=== PATIENT | male | born 1950 | race Caucasian/White ===

== ENCOUNTER 2016-06-29 06:57 | Observation (INO) | payer OTHER ==
[~2016-06-29 06:57] MED LIST: LIDOCAINE 1% 5 ML SDV ONE
[2016-06-29] MEDS ORDERED: ceFAZolin 2 GM/DEXTROSE 100 ML IV ONE (07:00)
[2016-06-29] MEDS ORDERED: DEXAMETHASONE 10 MG/ML VIAL IVP ONE (07:00)
[2016-06-29] MEDS ORDERED: LIDO/EPI 1% **Not for Epidural 20 ML MDV ONE (07:51)
[2016-06-29] MEDS ORDERED: MIDAZOLAM 2 MG/2 ML VIAL ONE (08:13)
[2016-06-29] MEDS ORDERED: PROPOFOL/EMULSION 500 MG/50 ML BOTTLE IV ONE ×2 (08:17→10:32)
[2016-06-29] MEDS ORDERED: fentaNYL 100 MCG/2 ML INJ ONE ×3 (08:17→13:49)
[2016-06-29] MEDS ORDERED: REMIFENTANIL HCL 1 MG VIAL ONE ×2 (08:17→10:32)
[2016-06-29] MEDS ORDERED: DEXAMETHASONE 4 MG/ML VIAL ONE (08:19)
[2016-06-29] MEDS ORDERED: ONDANSETRON 4 MG/2 ML VIAL ONE (08:19)
[2016-06-29] MEDS ORDERED: ROCURONIUM 50 MG/5 ML VIAL ONE (08:20)
[2016-06-29] MEDS ORDERED: LIDOCAINE 2% 5 ML SDV ONE (08:20)
[2016-06-29] MEDS ORDERED: PROPOFOL 200 MG/20 ML VIAL ONE (08:21)
[2016-06-29] MEDS ORDERED: PHENYLEPHRINE HCL 100 MCG/ML SYR ONE (08:27)
[2016-06-29] MEDS ORDERED: D5W 1/2 NS W/ 20 KCl/L 1,000 ML IV SCH (11:45)
[2016-06-29] MEDS ORDERED: OXYCODONE/APAP 5/325 TAB ONE (13:21)
--- NOTE | 2016-06-29 15:08 | GOP ---
[f rep st] OPERATIVE REPORT DATE OF OPERATION: 06/29/2016 SURGEON: Santino Freitas MD PERSONNEL ADMINISTRATOR: Mauri Carver. ANESTHESIA: General. PREOPERATIVE DIAGNOSIS: Left parotid gland tumor. POSTOPERATIVE DIAGNOSIS: Left parotid gland tumor. PROCEDURE PERFORMED: 1. Left superficial parotidectomy with facial nerve dissection. 2. Facial nerve monitoring x2 hours. 3. Limited neck dissection. FINDINGS: The patient had an approximately 1.5 x 1 x 1 cm tumor directly adjacent to the lower bran ch of the facial nerve. There were several slightly enlarged lymph nodes deep to this in upper leve l 2b of the neck, and these were removed as well. SPECIMENS: 1. Left parotid gland tissue. 2. Left neck level 2b lymph nodes. ESTIMATED BLOOD LOSS: 50 mL. INDICATIONS: The patient is a 65-year-old man with a left tail of parotid tumor. DESCRIPTION OF PROCEDURE: Patient was taken to the OR, positively identified, placed on monitors, g eneral anesthesia was induced. The patient had the facial nerve monitor set up. It was calibrated and used throughout the procedure. The face was prepped and draped in normal sterile fashion. I ma rked out an incision line for a modified Jayro incision. It was then injected with 5 cc of 1% lidoc matias with 1:100,000 epinephrine. The skin was sharply incised. Dr. Carver was assisting me through out the entire procedure, and his assistance and expertise were necessary for the safe completion of the operation. A skin flap was then raised and secured. Dissection was then carried down to the a nterior border of the sternocleidomastoid muscle, and dissection was carried superiorly, up anterior to the tragus. The incision was then deepened in a broad fashion down to the posterior belly of th e digastric muscle. The dissection was then carried superiorly and I was able to identify the main branch of the facial nerve. Dissection was then carried out to the pes of the facial nerve and then down along the inferior branch of the facial nerve. Individual branches of the nerve were dissecte d out intermittently using the facial nerve stimulating probe as needed, tying off vessels as needed when they were larger. The superficial lobe was then removed along with the underlying tumor which was contained within the inferior lobe. Several lymph nodes were deep to this and found to be slig htly enlarged. I elected to dissect out these lymph nodes due to the potential of a malignant neopl asm was present. Once this was done, the wound was irrigated with sterile saline. Hemostasis was a chieved. A drain was placed through a separate stab incision. The wound was closed in a layered fa shion with Vicryl, Prolene and fast-absorbing gut. A pressure dressing was placed and the case was terminated. At the end of the operation, I stimulated the facial nerve and all branches moved brisk ly. The patient was extubated and taken to the postop care unit in good condition, having tolerated the procedure well. COMPLICATIONS: None. /[id number]/MODL
[2016-06-29] MEDS: D5W 1/2 NS W/ 20 KCl/L 1,000 ML IV SCH (15:54)
[2016-06-29] MEDS: OXYCODONE/APAP 5/325 TAB PO PRN (16:53)
[2016-06-30] MEDS ORDERED: FLU VACC TS 2016-17(65YR+)/PF 0.5 ML SYR (FLUZONE HIGH DOSE) IM ONE (03:11)
[2016-06-30] MEDS: D5W 1/2 NS W/ 20 KCl/L 1,000 ML IV SCH (04:52)
[2016-06-30 07:41] VITALS: BP 117/58; PULSE 52; RESP 18; TEMP 97.9; O2SAT 95
--- NOTE | 2016-06-30 08:32 | SOAPPROG ---
SOAP Progress Note Assessment/Plan: pt s/p parotidectomy yesterday. doing very well. neck- dressing removed, drain was out, very small hematoma. Dressing placed. Facial nerve intact Plan:Pt s/p parotidectomy. He can remove dressing tomorrow. Discussed post op care. apply ointment to incision. F/u next week for suture removal, sooner if swelling increases. 06/30/16 08:29 Objective: Vital Signs Temp Pulse Resp BP Pulse Ox 36.6 C 52 L 18 117/58 L 95 06/30/16 07:40 06/30/16 07:40 06/30/16 07:40 06/30/16 07:40 06/30/16 07:40 06/29/16 06/30/16 07/01/16 05:59 05:59 05:59 Intake Total 3380 Output Total 65 Balance 3315 - Pending Discharge Pending Discharge Within 24 Hours: Yes Pending Discharge Date: 07/01/16 Pending Discharge Time: 11:00 ICD10 Worksheet Patient Problems: Problems Problem Status Onset Parotid adenoma Acute - ICD10 Problem Qualifiers (1) Parotid adenoma
[2016-06-30] MEDS: OXYCODONE/APAP 5/325 TAB PO PRN (09:48)
== END 2016-06-30 09:55 | disposition home or self-care (01) ==
LOC: F3E 06:57
PROVIDERS: ADMIT Otolaryngology; ATTEND Otolaryngology
PROC: 0CB90ZZ Excision of Left Parotid Gland, Open Approach (ICD-10-PCS; principal; 2016-06-29 08:15)
DX: D11.0 Benign neoplasm of parotid gland (principal); E78.5 Hyperlipidemia, unspecified; F32.9 Major depressive disorder, single episode, unspecified; Z23 Encounter for immunization
CPT/HCPCS: 42415; 90662; G0008; J0690; J2250; J2370; J2405; J2704; J3010; J1100

== ENCOUNTER 2016-12-13 11:09 | Inpatient (IN) | payer OTHER ==
[2016-12-13] MEDS ORDERED: LIDOCAINE 1% 300 MG/30 ML SDV ONE (11:25)
[2016-12-13] MEDS ORDERED: MIDAZOLAM 2 MG/2 ML VIAL ONE ×3 (11:26→11:55)
[2016-12-13] MEDS ORDERED: fentaNYL 100 MCG/2 ML INJ ONE ×2 (11:26→11:55)
[2016-12-13] MEDS ORDERED: IOPAMIDOL (ISOVUE-370) 150 ML BTL IV ONE (11:26)
[2016-12-13] MEDS ORDERED: ASPIRIN 81 MG CHEWABLE TAB ONE (11:26)
[2016-12-13] MEDS ORDERED: ASPIRIN 81 MG CHEWABLE TAB PO ONE (11:28)
--- NOTE | 2016-12-13 11:28 | EDPHY ---
H & P Time Seen by Provider: 12/13/16 11:20 HPI/ROS: CHIEF COMPLAINT: Chest pain HISTORY OF PRESENT ILLNESS: Patient was on a bike ride today with his when he started developing chest pain around 9:30 a.m. while riding. It radiated to both arms but was not associated with shortness of breath or vomiting or diaphoresis. His states he did have nausea. He presents with his with continued symptoms which are better but not completely gone. Symptoms were moderate and now are mild. Not better worse with anything. REVIEW OF SYSTEMS: Eye: no change in vision ENT: no sore throat Cardiac: HPI Pulmonary: no cough or SOB Abdomen: no vomiting, diarrhea, abdominal pain Musculoskeletal: no back pain Skin: no rash Neuro: no headache Constitutional: no fever : no urinary symptoms A comprehensive 10 point review of systems is otherwise negative aside from elements mentioned in the history of present illness. PAST MEDICAL HISTORY: Hypercholesterolemia Social history: , nonsmoker General Appearance: Alert and conversant, cooperative. Eyes: No scleral icterus. ENT, Mouth: Normal mucous membranes. Respiratory: Normal respiratory effort, breath sounds equal, lungs are clear to auscultation. Cardiovascular: Regular rate and rhythm. Gastrointestinal: Abdomen is soft and non tender. Neurological: Alert and oriented x3. Normally conversant. Face symmetric, normal movement and sensation in all extremities. Skin: Warm and dry, no rashes. Musculoskeletal: No peripheral edema and no joint swelling. Psychiatric: Not agitated. Emergency Department course/MDM: EKG performed, reviewed by myself, made a cardiac alert immediately. Ayoub at bedside at 1125; oral aspirin, cardiac cath rn. Placed on a cardiac nurse specialist. Further therapeutics deferred to cardiac cardiac cath rn. ICU admission. 1136: off to cardiac cath rn, total critical care time 20 minutes. Smoking Status: Never smoked Constitutional: Initial Vital Signs Temperature (C) 36.4 C 12/13/16 11:16 Heart Rate 54 L 12/13/16 11:16 Respiratory Rate 18 12/13/16 11:16 Blood Pressure 158/75 H 12/13/16 11:16 O2 Sat (%) 97 12/13/16 11:16 O2 Delivery Mode Room Air Allergies/Adverse Reactions: No Known Allergies Allergy (Verified 12/13/16 11:15) Home Medications: Medication Instructions Recorded Atorvastatin Calcium [Lipitor 40 40 mg PO DAILY 12/13/16 mg (*)] Escitalopram Oxalate [Lexapro] 10 mg PO DAILY 12/13/16 Medical Decision Making - Diagnostics EKG Interpretation: 12-lead EKG interpreted by me; official reading is in trace master. My interpretation is sinus rhythm, ST elevation consistent with acute anterior myocardial infarction. Differential Diagnosis: Differential diagnosis considered for chest pain including but not limited to myocardial ischemia, aortic dissection, pericarditis, pulmonary embolus, chest wall pain, pleural inflammation and pulmonary infectious causes. - Data Points Medications Given: Discontinued Medications Aspirin (Aspirin) 324 mg PO EDNOW ONE Stop: 12/13/16 11:29 Last Admin: 12/13/16 11:39 Dose: 324 mg Departure - Departure Disposition: To OP Cath/Surgery Clinical Impression: Acute myocardial infarction Condition: Serious
--- NOTE | 2016-12-13 11:30 | CPEKG ---
Heart Rate: 51 RR Interval: 1176 P-R Interval: 172 QRSD Interval: 82 QT Interval: 460 QTC Interval: 424 P [place]: 12 QRS [place]: 30 T Wave [place]: 25 EKG Severity - ABNORMAL ECG - EKG Impression: SINUS RHYTHM EKG Impression: LATERAL INJURY, PROBABLE EARLY ACUTE INFARCT EKG Impression: ST ELEVATION, CONSIDER ANTERIOR INJURY Electronically Signed By: Lex Cruz 13-Dec-2016 11:30:47
[2016-12-13 11:37] LABS: % IMMATURE GRANULYOCYTES 0.4 % (0.0-1.1); ABSOLUTE IMMATURE GRANULOCYTES 0.05 10^3/uL (0.00-0.10); ADD DIFF? NO; ADD MORPH? NO; ADD SCAN? NO; ATYPICAL LYMPHOCYTE FLAG 0 (0-99); FRAGMENT RBC FLAG 0 (0-99); HEMATOCRIT 48.1 % (40.0-51.0); HEMOGLOBIN 16.7 g/dL (13.7-17.5); LEFT SHIFT FLG 0 (0-99); LIPEMIA HEMOLYSIS FLAG 90 (0-99); MEAN CELL HEMOGLOBIN 33.8 pg (27.9-34.1); MEAN CELL HEMOGLOBIN CONCENTR. 34.7 g/dL (32.4-36.7); MEAN CELL VOLUME 97.4 fL (81.5-99.8); PLATELET CLUMPS FLAG 0 (0-99); PLATELET COUNT 220 10^3/uL (150-400); RED BLOOD CELL COUNT 4.94 10^6/uL (4.40-6.38); RED CELL DISTRIBUTION WIDTH 12.3 % (11.5-15.2)
[2016-12-13] MEDS ORDERED: BIVALIRUDIN 250 MG/5 ML VIAL IV ONE (11:45)
[2016-12-13] MEDS ORDERED: NITROGLYCERIN 1,500 MCG/15 ML VIAL MISC ONE (11:45)
[2016-12-13 11:48] LABS: ANION GAP 15 mEq/L (8-16); CALCIUM 10.2 mg/dL (8.5-10.4); CARBON DIOXIDE 22 mEq/l (22-31); CHLORIDE 107 mEq/L (97-110); CREATININE 1.1 mg/dL (0.7-1.3); GLOMERULAR FILTRATION RATE > 60; GLUCOSE 101 mg/dL (70-100); POTASSIUM 4.5 mEq/L (3.5-5.2); SODIUM 144 mEq/L (134-144)
[2016-12-13] MEDS ORDERED: EPTIFIBATIDE 200 MG/100 ML BOTTLE IV ONE (11:55)
[2016-12-13] MEDS ORDERED: EPTIFIBATIDE 20 MG/10 ML VIAL IVP ONE (11:56)
[2016-12-13 12:01] LABS: TROPONIN I 0.082 ng/mL (0-0.034)
[2016-12-13] MEDS ORDERED: IOPAMIDOL (ISOVUE-300) 150 ML BTL ONE (12:07)
[2016-12-13] MEDS ORDERED: ATROPINE SULFATE 1 MG/10 ML SYR ONE (12:08)
[2016-12-13] MEDS ORDERED: ADENOSINE 6 MG/2 ML VIAL ONE ×2 (12:12→12:13)
[2016-12-13] MEDS ORDERED: PRASUGREL HCL 10 MG TAB ONE (12:56)
[2016-12-13] MEDS ORDERED: TICAGRELOR 90 MG TAB ONE (13:00)
[2016-12-13] MEDS ORDERED: ATROPINE SULFATE 1 MG/10 ML SYR IVP PRN (13:15)
[2016-12-13] MEDS ORDERED: TICAGRELOR 90 MG TAB PO ONE (13:15)
[2016-12-13] MEDS ORDERED: ONDANSETRON 4 MG/2 ML VIAL IVP PRN (13:15)
[2016-12-13] MEDS ORDERED: ASPIRIN EC 325 MG TAB PO ONE (13:15)
[2016-12-13] MEDS ORDERED: NITROGLYCERIN 0.4 MG BTL SL PRN (13:15)
[2016-12-13] MEDS ORDERED: TEMAZEPAM 15 MG CAP PO PRN (13:15)
--- NOTE | 2016-12-13 14:03 | CPEKG ---
Heart Rate: 46 RR Interval: 1304 P-R Interval: 172 QRSD Interval: 86 QT Interval: 464 QTC Interval: 406 P [place]: 11 QRS [place]: 32 T Wave [place]: 55 EKG Severity - ABNORMAL ECG - EKG Impression: SINUS BRADYCARDIA EKG Impression: ST ELEVATION, PROBABLE LATERAL INJURY EKG Impression: ST ELEVATION, CONSIDER ANTERIOR INJURY Electronically Signed By: Barry Ayoub 14-Dec-2016 17:38:21
--- NOTE | 2016-12-13 17:42 | GHP ---
[f rep st] HISTORY AND PHYSICAL DATE OF ADMISSION: 12/13/2016 CHIEF COMPLAINT: We have been asked by Dr. Miguel to evaluate Mr. Lewis as a cardiac alert. HISTORY OF PRESENT ILLNESS: Mr. Lewis is a 66-year-old gentleman with known coronary artery disease based on coronary artery calcium scoring who presents with a chief complaint of chest pain. The darwin schneider was in his usual state of health until approximately 9:30 this a.m. While riding his bicycle, he began to experience chest pain. The chest pain is described as a pressure in the center of his chest extending into his arms. The chest pain was associated with nausea but not vomiting or diapho resis. When the chest discomfort did not improve, he presented to the emergency department for furt her evaluation. In the emergency department, he had an EKG performed demonstrating anterior ST and T-wave elevation consistent with an acute anterior myocardial infarction. He was treated with aspir in and nitroglycerin, and we were consulted to help in the further management of this patient. The patient was originally diagnosed with coronary artery disease in February of 2016 by coronary artery calcium scoring. Workup at that time including stress testing and echocardiogram was unremarkable. The patient did well until recently when he began to experience exertional chest pain consistent wi th angina. He denies a history of palpitations, orthopnea and PND. Risk factors include age and hy perlipidemia. PAST MEDICAL HISTORY: 1. Coronary artery disease by coronary artery calcium scoring. 2. Hyperlipidemia. 3. Depression. MEDICATIONS: Please see medicine reconciliation form. ALLERGIES: No known drug allergies. SOCIAL HISTORY: Patient is a retired high school band teacher. He does not smoke and denies problems with alcohol. FAMILY HISTORY: Noncontributory. REVIEW OF SYSTEMS: A 10-point review of systems is negative except as noted in the HPI. PHYSICAL EXAM: Abbreviated physical examination secondary to acute nature of illness. GENERAL: Darwin schneider is resting in bed. He is continuing to have symptoms of chest discomfort at this time. VITAL S: Blood pressure is 158/75, heart rate is 54, SaO2 is 97% on room air. HEENT: Normocephalic, atr aumatic. Extraocular muscles intact. NECK: No JVD. No bruits. LUNGS: Clear to auscultation ebenezer aterally. CARDIOVASCULAR: Regular rate and rhythm. S1, S2. Positive S4. ABDOMEN: Soft, nontend er. Normoactive bowel sounds. No hepatosplenomegaly. No abdominal aortic aneurysm palpated. EXTR EMITIES: No clubbing, cyanosis, or edema. NEURO: Patient is awake, alert, and oriented x3. LABORATORY: White blood cell count 14.19, hemoglobin 16.7, hematocrit 48, platelet count 220. Sodi um 144, potassium 4.5, chloride 107, CO2 of 22, BUN 21, creatinine 1.1. Troponin 0.082. ASSESSMENT AND PLAN: Mr. Lewis is a 66-year-old gentleman with known coronary artery disease who pr esents with an acute anterior ST-segment elevation myocardial infarction. Reviewed risks, benefits of cardiac catheterization with the patient and his . Will arrange to have this performed emerg palomo. /[id number]/MODL
--- NOTE | 2016-12-13 19:32 | CPIP ---
[f rep st] INVASIVE CARDIAC PROCEDURE DATE OF PROCEDURE: 12/13/2016 PROCEDURE: 1. Coronary angiography. 2. Left ventriculography. 3. Thrombectomy of left anterior descending coronary artery. 4. Stenting of left anterior descending coronary artery with Synergy drug-eluting stent. INDICATION: Acute anterior TV-vwzfujv-cydfttitz myocardial infarction. ACCESS: Patient was prepped and draped in a sterile fashion. 1% lidocaine was used to anesthetize the right inguinal region. A 6-[place] introducer sheath was placed selectively into the right commo n femoral artery via modified Seldinger technique. CORONARY ANGIOGRAPHY: A 6-[place] JL4 was advanced to the left main coronary artery and images obtai aditi. The left main coronary artery bifurcated into an LAD and circumflex coronary arteries. The le ft main coronary artery appeared normal. The left anterior descending coronary artery gave rise to 2 prominent diagonal branches. The left anterior descending coronary artery was diffusely diseased. In the proximal segment, there was a segmental 20% stenosis present. In the mid vessel there was a discrete 100% stenosis present. The first diagonal artery had an ostial 30% stenosis present. Th e second diagonal artery appeared free of any significant disease. Circumflex coronary artery is no ndominant, and the circumflex coronary artery appeared normal. A 6-[place] JR4 was advanced to the r ight coronary artery and images obtained. The right coronary artery was dominant. The right whyte ry artery had mild diffuse disease throughout; there was no stenosis greater than 20%. LEFT VENTRICULOGRAPHY: A 6-[place] pigtail catheter was advanced into the left ventricle and images obtained. Left ventricle was normal in size with mildly reduced systolic function; estimated ejecti on fraction is 55%. The apex appeared to be hypokinetic. PERCUTANEOUS CORONARY INTERVENTION OF THE LEFT ANTERIOR DESCENDING CORONARY ARTERY: A 6-[place] EBU 3.75 catheter was advanced to the left main coronary artery and images obtained. Angiography confir med the presence of a single discrete 100% occlusion in the mid vessel. A Luge wire was advanced in to the mid vessel and position verified by angiography. With placement of the Luge wire, VISH-3 susannah w could be seen extending into the 2nd diagonal artery. The distal left anterior descending coronar y artery had VISH zero flow. Thrombectomy was then performed with a Pronto catheter. Followup corina ography demonstrated significant residual stenosis; here again with VISH 3 flow into the 2nd diagona l artery. The distal LAD had reduced VISH flow, approximately VISH 1. A 3.5 x 28 Synergy drug-elut ing stent was then placed across the lesion and deployed. Followup angiography demonstrated no resi dual stenosis with VISH 1 flow in both the second diagonal and distal left anterior descending coron rita artery. The patient was treated with nitroglycerin as well as adenosine with amish of PATRICIA I 3 flow in the 2nd diagonal artery, and the distal left anterior descending coronary artery continu ed to have VISH 1 flow. A 4.0 x 20 noncompliant balloon was used to post dilate the stent. Followu p angiography demonstrated no residual stenosis with reduced VISH flow in the 2nd diagonal artery as well as distal left anterior descending coronary artery. The patient was again treated with nitrog lycerin and adenosine with amish of VISH 3 flow in the 2nd diagonal artery and VISH 1 flow in the left anterior descending coronary artery. COMPLICATIONS: None. CONCLUSIONS: 1. Single-vessel coronary artery disease involving the left anterior descending coronary artery. 2. Mildly reduced left ventricular systolic function with an estimated ejection fraction of 55% and apical hypokinesis. 3. Status post thrombectomy and stenting of left anterior descending coronary artery. /[id number]/MODL
--- NOTE | 2016-12-13 21:28 | GCON ---
[f rep st] CONSULTATION BRAND COMMUNICATIONS MANAGER CONSULTATION REASON FOR ADMISSION: Acute DE, coronary artery disease. HISTORY OF PRESENT ILLNESS: The patient is very pleasant, 66-year-old white male, with a past medic al history of hypercholesterolemia. He the patient was riding his bike today and began developing c hest pain. This occurred quite suddenly, but it was not associated with breathlessness or diaphores is. There was no nausea or vomiting. He was brought to the emergency room and taken the cardiac ca theterization lab. There, he underwent cardiac stenting. He was subsequently admitted to the [facility] unit. In discussion, the patient said overall he is doing quite well. His pain has resolved. There is no breathlessness. No fever or night sweats. No cough or production of sputum. PAST MEDICAL HISTORY: Significant for hypercholesterolemia. PAST SURGICAL HISTORY: None. ALLERGIES: No known allergies to medications. SOCIAL HISTORY: Lifelong never smoker. He does not drink much alcohol. He is , has [employer] family support. He exercises regularly. 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 MEDICATIONS: He takes Lipitor and Lexapro. PHYSICAL EXAMINATION: VITAL SIGNS: Blood pressure is 110/57, pulse 46, respirations 18, temperatur e 36.4, oxygen saturation 99% on room air. GENERAL: He is a well-developed, well-nourished 66-year -old white male, who is resting comfortably, in no acute distress. HEENT: Eyes are EMELY. EOMI. T hroat shows no erythema or tonsillar hypertrophy. NECK: Supple. No cervical adenopathy. HEART: Regular rate and rhythm without murmurs, rubs, or gallops. LUNGS: Clear to auscultation. No wheez e or rhonchi. ABDOMEN: Soft, nontender. Bowel sounds are present in all 4 quadrants. EXTREMITIES : No clubbing, cyanosis, or edema. LABORATORY DATA: White count 14, hemoglobin 16, hematocrit 48, platelet count 220. Sodium 144, pot assium 4.5, chloride 107, CO2 22, BUN 21, creatinine 1.1. Glucose 101. Troponin is mildly elevated at 0.082. IMPRESSION: 1. Acute myocardial infarction. 2. Coronary artery disease. 3. Status post cardiac stenting. RECOMMENDATIONS: 1. Adequate pain control. 2. DVT and PE prophylaxis. 3. Stress ulcer prophylaxis. 4. Early ambulation. /[id number]/MODL
[2016-12-13 22:27] LABS: CK-MB INTERPRETATION POSITIVE (NEGATIVE)
[2016-12-14] MEDS ORDERED: TICAGRELOR 90 MG TAB PO SCH (01:16)
[2016-12-14 05:40] LABS: % IMMATURE GRANULYOCYTES 0.3 % (0.0-1.1); ABSOLUTE IMMATURE GRANULOCYTES 0.03 10^3/uL (0.00-0.10); ADD DIFF? NO; ADD MORPH? NO; ADD SCAN? NO; ATYPICAL LYMPHOCYTE FLAG 10 (0-99); FRAGMENT RBC FLAG 0 (0-99); HEMATOCRIT 43.5 % (40.0-51.0); HEMOGLOBIN 15.1 g/dL (13.7-17.5); LEFT SHIFT FLG 0 (0-99); LIPEMIA HEMOLYSIS FLAG 90 (0-99); MEAN CELL HEMOGLOBIN 33.3 pg (27.9-34.1); MEAN CELL HEMOGLOBIN CONCENTR. 34.7 g/dL (32.4-36.7); MEAN PLATELET VOLUME 9.4 fL (8.7-11.7); PLATELET CLUMPS FLAG 0 (0-99); PLATELET COUNT 197 10^3/uL (150-400); RED BLOOD CELL COUNT 4.53 10^6/uL (4.40-6.38); RED CELL DISTRIBUTION WIDTH 12.7 % (11.5-15.2)
[2016-12-14 05:49] LABS: ANION GAP 10 mEq/L (8-16); CALCIUM 9.1 mg/dL (8.5-10.4); CARBON DIOXIDE 22 mEq/l (22-31); CHLORIDE 108 mEq/L (97-110); CHOLESTEROL 141 mg/dL (140-220); CHOLESTEROL/HDL RATIO 2.94 RATIO (1.00-4.97); GLOMERULAR FILTRATION RATE > 60; GLUCOSE 88 mg/dL (70-100); HIGH DENSITY LIPOPROTEIN 48 mg/dL (40-65); LDL/HDL RATIO 1.63 RATIO (1.00-3.64); LOW DENSITY LIPOPROTEIN 78 mg/dL (80-100); NON-HIGH DENSITY LIPOPROTEIN 93 mg/dL (90-129); POTASSIUM 4.1 mEq/L (3.5-5.2); SODIUM 140 mEq/L (134-144); TRIGLYCERIDE 76 mg/dL (40-150); VERY LOW DENSITY LIPOPROTEINS 15 mg/dL (8-25)
[2016-12-14 06:28] LABS: CK-MB INTERPRETATION POSITIVE (NEGATIVE)
--- NOTE | 2016-12-14 09:29 | CPEKG ---
Heart Rate: 58 RR Interval: 1034 P-R Interval: 172 QRSD Interval: 86 QT Interval: 516 QTC Interval: 507 P [place]: 34 QRS [place]: 33 T Wave [place]: 101 EKG Severity - ABNORMAL ECG - EKG Impression: SINUS RHYTHM EKG Impression: ABNORMAL T, CONSIDER ISCHEMIA, LATERAL LEADS EKG Impression: ST ELEVATION, CONSIDER ANTEROLATERAL INJURY EKG Impression: PROLONGED QT INTERVAL Electronically Signed By: Barry Ayoub 14-Dec-2016 17:37:48
[2016-12-14] MEDS: ESCITALOPRAM OXALATE 10 MG TAB PO SCH (09:51)
[2016-12-14] MEDS: ATORVASTATIN CALCIUM 40 MG TAB PO SCH (09:51)
[2016-12-14] MEDS: ASPIRIN EC 81 MG TAB PO SCH (09:51)
[2016-12-14] MEDS: TICAGRELOR 90 MG TAB PO SCH ×2 (09:51→20:17)
--- NOTE | 2016-12-14 10:42 | ECHO ---
[id number] + + [address] : : [place] [address] : : [phone] + + Adult Echocardiographic Report + ------+ :Name: MIN MEJIA HStudy Date: 12/14/2016 08:45 AM : : Hospital Admission Number: [id number] Locatio n: 248: :: 1950 Gender: Male Height: 68 in : :Age: 66 yrs Race: WH Weight: 175 lb : :Reason For Study: S/P anterior TX/stent : : BSA: 1.9 meters 2 : + ------+ MMode/2D Measurements \T\ Calculations IVSd: 0.79 cm LVIDd: 4.7 cm FS: 44.9 % Ao root diam: LVPWd: 0.97 cm LVIDs: 2.6 cm EDV(Teich): 3.8 cm 104.1 ml LA dimension: ESV(Teich): 4.0 cm 24.8 ml EF(Teich): 76.2 % LVLd ap4: 9.0 cm SV(MOD-sp4): EDV(MOD-sp4): 70.0 ml 99.0 ml LVLs ap4: 7.2 cm ESV(MOD-sp4): 29.0 ml EF(MOD-sp4): 70.7 % Normal Measurement Values: + + :LVIDd (3.5-5.7cm) IVSd (0.6-1.1cm) LVPWd (0.6-1.1cm) Aortic Root (2.0-3.7cm)Left Atrium (1.5-4.0cm): :LV Vol(d) (76-115ml) LV Vol(s) (29-48ml) Ejec Fraction (50-65%)PV Deni (0.6- 1.2m/s) TV Deni (0.4-1.0m/s) : :MV E Deni (0.8-1.0m/s)MV A Deni (0.3-1.0m/s)LVOT Deni (0.7-1.2m/s) Asc Ao Deni ( 0.9-1.8m/s) : + + Doppler Measurements \T\ Calculations MV E max deni: 61.2 cm/sec Ao mean P.3 mmHg MV A max deni: 78.5 cm/sec Ao V2 mean: 94.5 cm/sec MV E/A: 0.78 Ao V2 VTI: 23.3 cm Left Ventricle The left ventricle is normal in size. There is normal left ventricular wall thickness. The left ventricle is hyperdynamic. Ejection Fraction = 65-70%. No regional wall motion abnormalities noted. Right Ventricle The right ventricle is normal in size and function. Atria The left atrial size is normal. Right atrial size is normal. Mitral Valve The mitral valve is normal in structure and function. There is no evidence of mitral valve prolapse. There is no mitral valve stenosis. There is trace mitral regurgitation. Tricuspid Valve Normal tricuspid valve. There is trace tricuspid regurgitation. Aortic Valve The aortic valve is trileaflet. The aortic valve opens well. There is no aortic stenosis. There is no aortic insufficiency. Pulmonic Valve The pulmonic valve is normal in structure and function. There is no pulmonic valvular regurgitation. Great Vessels The aortic root is normal size. Pericardium/Pleural There is no pericardial effusion. Conclusion A complete two-dimensional transthoracic echocardiogram was performed (2D, M-mode, Doppler and color flow Doppler). 1. The left ventricle is normal in size. The Ejection Fraction = 65-70%. No regional wall motion abnormalities noted. 2. The mitral valve is normal in structure and function. There is trace mitral regurgitation. 3. The aortic valve is trileaflet. There is no aortic stenosis. There is no aortic insufficiency. 4. No old studies for comparison. Final Reading Physician: Barry Ayoub MD electronically signed on 12/14/2016 10:40 AM Ordering Physician: Barry Ayoub Performed By: Estela Skinner RDCS
--- NOTE | 2016-12-14 12:50 | SOAPPROG ---
[facility] Progress Note Assessment/Plan: 1. Acute anterior ST segment elevation HI - Pt presented with an acute anterior ST segment elevation HI on 12/13/16. He was treated with PCI of his LAD using synergy NAYANA. CPK 705. LVEF = 65% with no segmental wma. Pt denies recurrent angina. No CHF. No significant arrhythmias on telemetry monitoring. --> Continue asa, brilinta, and atorvastatin --> Will start lisinopril 2.5 mg daily --> Will continue to monitor for another 24 hrs. If patient remains stable anticipate DC in am. 2. hyperlipidemia - LDL = 78 on lipitor 40 mg daily --> Continue current therapy. 12/14/16 12:45 Subjective: No chest pain No orthopnea or PND Ambulating with out difficulty No groin complications Objective: Vital Signs Temp Pulse Resp BP Pulse Ox 36.6 C 65 18 128/61 H 95 12/14/16 07:00 12/14/16 10:00 12/14/16 10:00 12/14/16 10:00 12/14/16 10:00 Laboratory Results 12/14/16 05:30 12/14/16 05:30 12/13/16 12/14/16 12/15/16 05:59 05:59 05:59 Intake Total 350 Output Total 1075 400 Balance -725 -400 - Time Spent With Patient Time Spent With Patient: greater than 50% of this 32 min visit was spent discussing patient condition and prognosis with patient and . Physical Exam - Physical Exam General Appearance: alert, no apparent distress Respiratory: lungs clear Cardiac/Chest: regular rate, rhythm Abdomen: normal bowel sounds, non-tender, soft Extremities: other (No hematoma or echymosis), No pedal edema Neuro/Psych: alert, oriented x 3 ICD10 Worksheet Patient Problems: Problems Problem Status Onset Chronic Disease Mgmt/Transitional Care Acute Parotid adenoma Acute Acute myocardial infarction Acute
[2016-12-14 13:57] LABS: CK-MB INTERPRETATION POSITIVE (NEGATIVE)
[2016-12-15 05:20] VITALS: O2SAT 96
[2016-12-15 07:26] VITALS: TEMP 97.8
[2016-12-15] MEDS: TICAGRELOR 90 MG TAB PO SCH (08:46)
[2016-12-15] MEDS: ATORVASTATIN CALCIUM 40 MG TAB PO SCH (08:47)
[2016-12-15] MEDS: ESCITALOPRAM OXALATE 10 MG TAB PO SCH (08:47)
[2016-12-15] MEDS: ASPIRIN EC 81 MG TAB PO SCH (08:47)
[2016-12-15] MEDS ORDERED: LISINOPRIL 2.5 MG TAB PO SCH (09:00)
[2016-12-15 12:06] VITALS: BP 134/68; PULSE 53; RESP 18
--- NOTE | 2016-12-16 17:03 | GDS ---
[f rep st] DISCHARGE SUMMARY ADMIT DIAGNOSES: 1. Acute ST segment elevation myocardial infarction. 2. Percutaneous coronary intervention of the left anterior descending. 3. Hyperlipidemia. 4. Depression. DISCHARGE DIAGNOSES: 1. Status post percutaneous coronary intervention of the left anterior descending. 2. Coronary artery disease. 3. Hyperlipidemia. 4. Depression. COURSE OF HOSPITALIZATION: This gentleman came into the emergency room after experiencing chest dis comfort. He had known coronary artery disease based on coronary calcium scoring. He had been out r iding his bicycle and began to experience chest pain on the morning of his admission. His EKG showe d anterior ST and T-wave elevation, consistent with acute anterior myocardial infarction. He was tr eated with aspirin and nitroglycerin. [facility] was emergently taken [facility], where Dr. Muna Ayoub was able to identify LAD blockage with placement of a drug-eluting stent in the LAD. Ther e were no complications. Echocardiogram was done on 12/14/2016 with ejection fraction estimated at 65% to 70%. No regional wall motion abnormalities were noted. There were no other significant find ings. On 12/14/2016, he was progressing nicely post PCI of the LAD. CPK 705, left ventricular ejec tion fraction 65% with no wall motion abnormalities. He had no congestive heart failure. There wer e no arrhythmias on telemetry. He is treated with aspirin 81 mg, Brilinta, and atorvastatin at this time. We will plan to start lisinopril 2.5 mg daily based on blood pressure. If not started befor e discharge, will start as an outpatient. Plan to monitor 24 additional hours due to his ST-elevati on PR and CPK elevation. His LDL was 78 on Lipitor 40 mg daily. PHYSICAL EXAM: VITAL SIGNS: On day of discharge, blood pressure 134/68, heart rate 53, oxygen satu ration 96%. Telemetry shows sinus bradycardia with a rate of 53. There were no ST-elevation indica tors. HEART: Rate is regular. No murmurs, rubs, gallops. LUNGS: Sounds are clear to auscultatio n. No wheezes, rales, or rhonchi. EXTREMITIES: No peripheral edema noted. He feels well and is a nxious for discharge. DISCHARGE PLAN: He will follow up in [address] Rivas. He will continue on Brilinta, aspirin, lisinopril 2.5 mg daily, Lipitor 40 mg daily. Beta stephanie will be addressed at upcoming appointme nt if indicated. He will participate in cardiac rehab. He has visited with the rehab team, and the y will call him to set up his first appointment. He was given an order to have a Plavix test done. He will remain on Brilinta for a minimum of 4-6 weeks. If the Plavix test comes back that he is a good metabolizer of Plavix and if there is financial need, he can be switched from Brilinta to Plavi x at that time. Ideally, Dr. Ayoub would like him to remain on Brilinta for a year. At this time, he currently is stable for discharge. /[id number]/MODL
== END 2016-12-15 14:25 | disposition home or self-care (01) | DRG 247 ==
LOC: F2N 13:06 → F2W 12-14 15:10
PROVIDERS: ADMIT Internal Medicine Cardiovascular Disease; ATTEND Internal Medicine Cardiovascular Disease
PROC: B2151ZZ Fluoroscopy of Left Heart using Low Osmolar Contrast (ICD-10-PCS; principal; 2016-12-13)
PROC: 027034Z Dilation of Coronary Artery, One Artery with Drug-eluting Intraluminal Device, Percutaneous Approach (ICD-10-PCS; principal; 2016-12-13)
PROC: 02C03ZZ Extirpation of Matter from Coronary Artery, One Artery, Percutaneous Approach (ICD-10-PCS; principal; 2016-12-13)
PROC: B2111ZZ Fluoroscopy of Multiple Coronary Arteries using Low Osmolar Contrast (ICD-10-PCS; principal; 2016-12-13)
DX: I21.09 ST elevation (STEMI) myocardial infarction involving other coronary artery of anterior wall (principal); I25.10 Atherosclerotic heart disease of native coronary artery without angina pectoris; E78.5 Hyperlipidemia, unspecified; F32.9 Major depressive disorder, single episode, unspecified
CPT/HCPCS: C1725; C1753; C1757; C1769; C1874; C1887; C9606; J0153; J0461; J0583; J1327; J1644; J2250; J3010; Q9967

== ENCOUNTER → 2017-08-31 | Outpatient (CLI) | payer OTHER | LOC: BMCIMAGING 08:55 | PROVIDERS: ATTEND Internal Medicine | DX: R10.12 Left upper quadrant pain (principal); K82.8 Other specified diseases of gallbladder; N28.1 Cyst of kidney, acquired ==

== ENCOUNTER → 2017-09-27 | Outpatient (CLI) | payer OTHER ==
[~2017-09-27] MED LIST changes: +IOPAMIDOL (ISOVUE-300) 100 ML BTL ONE; -LIDOCAINE 1% 5 ML SDV ONE
== END ==
LOC: FIMAGING 14:54
PROVIDERS: ATTEND Internal Medicine
DX: I70.0 Atherosclerosis of aorta (principal); D73.9 Disease of spleen, unspecified; K40.90 Unilateral inguinal hernia, without obstruction or gangrene, not specified as recurrent; K59.00 Constipation, unspecified
CPT/HCPCS: 74177; Q9967